=== PATIENT | male | born 1970 | race African-American/Black ===

== ENCOUNTER 2024-09-17 21:04 | Emergency (ER) | payer MEDICAID ==
[~2024-09-17] VITALS: Ht 177.8 cm; Wt 90.4 kg
[2024-09-17 21:07] VITALS: O2SAT 99
[2024-09-17 21:53] LABS: BASOPHILS % 0.5 % (0.0-2.0); EOSINOPHILS % 0.4 % (0.0-5.0); HEMATOCRIT. 45.5 % (42.0-52.0); HEMOGLOBIN. 15.3 g/dL (14.0-18.0); LYMPHOCYTES % 29.2 % (20.0-50.0); MEAN PLATELET VOLUME 8.6 fl (7.4-10.4); MONOCYTES % 5.8 % (2.0-8.0); NEUTROPHILS % 64.1 % (40.0-76.0); PLATELET 238 x1000/uL (130-400); RED BLOOD CELL COUNT 5.97 mill/uL (4.7-6.1); RED CELL DISTRIBUTION WIDTH 15.0 % (11.6-14.6)
[2024-09-17 22:09] LABS: CREATININE 1.3 mg/dL (0.6-1.3); UREA NITROGEN BLOOD 20 mg/dL (9-23)
[2024-09-17 22:17] LABS: TROPONIN I HIGH SENSITIVITY < 4 ng/L (3.0-53)
[2024-09-17 23:20] VITALS: BP 145/97; PULSE 65; RESP 16; TEMP 36.9; O2SAT 98
== END 2024-09-17 23:49 | disposition home or self-care (01) ==
LOC: ER 21:04
DX: R07.89 Other chest pain (principal); I10 Essential (primary) hypertension
CPT/HCPCS: 80048; 85025; 84484; 36415; 71045; 93005; 99285; Z7610 ×2